=== PATIENT | female | born 2005 | race Caucasian/White ===

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

== ENCOUNTER 2024-03-25 00:45 | Emergency (ER) | payer BC ==
[~2024-03-25] VITALS: Ht 172.7 cm; Wt 90.5 kg
[~2024-03-25 00:45] MED LIST changes: +AZO-95TA3 PO; +BACT800T5 PO; +ONDA-282 PO; -ONDA4TAB6 PO
[2024-03-25 01:06] VITALS: BP 139/68
[2024-03-25 01:54] LABS: BASO % 0.6 % (0.0-1.0); EOS # 0.1 10^3/uL (0.0-0.5); EOS % 1.8 % (0.0-3.0); HEMOGLOBIN 12.4 g/dl (12.0-15.5); LYMPH # 3.8 10^3/uL (1.5-5.0); LYMPH % 52.9 % (24.0-44.0); MEAN CORPUSCULAR HEMOGLOBIN 28.3 pg (27.0-33.0); MEAN CORPUSCULAR HGB CONC 33.5 g/dl (32.0-36.5); MEAN CORPUSCULAR VOLUME 84.5 fl (80.0-96.0); MONO # 0.5 10^3/uL (0.0-0.8); MONO % 6.7 % (2.0-8.0); NEUTROPHILS # 2.7 10^3/uL (1.5-8.5); NEUTROPHILS % 37.9 % (36.0-66.0); PLATELET COUNT, AUTOMATED 317 10^3/uL (150-450); RED BLOOD COUNT 4.38 10^6/uL (4.00-5.40); WHITE BLOOD COUNT 7.1 10^3/uL (4.0-10.0)
[2024-03-25 02:21] LABS: ALBUMIN 3.8 G/DL (3.2-5.2); ALKALINE PHOSPHATASE 78 U/L (46-116); ALT/SGPT 33 U/L (7.0-40); AST/SGOT 17 U/L (<34); BILIRUBIN,DIRECT < 0.1 MG/DL (<0.4); BILIRUBIN,TOTAL 0.2 MG/DL (0.3-1.2); BLOOD UREA NITROGEN 9 MG/DL (9-23); CARBON DIOXIDE LEVEL 24 MMOL/L (20-31); CHLORIDE LEVEL 110 MMOL/L (98-107); CREATININE FOR GFR 0.69 MG/DL (0.55-1.30); GLUCOSE, FASTING 111 MG/DL (60-100); POTASSIUM SERUM 3.4 MMOL/L (3.5-5.1); SODIUM LEVEL 142 MMOL/L (136-145); TOTAL PROTEIN 6.3 G/DL (5.7-8.2)
[2024-03-25] MEDS: IPRATROPIUM 0.5MG/ALBUTEROL 2.5MG INH SOL UD 3ML (DUONEB) NEB ONE (04:11)
[2024-03-25] MEDS: methylPREDNISolone 125MG 2ML VIAL IV ONE (04:57)
[2024-03-25 05:08] LABS: FREE T4 0.91 NG/DL (0.83-1.43)
[2024-03-25 05:38] LABS: THYROID STIMULATING HORMONE 3.471 uIU/ML (0.48-4.17)
[2024-03-25] MEDS: ALBUTEROL 90 MCG/ACT 8GM HFA INHALER INH ONE (06:29)
[2024-03-25 06:34] VITALS: TEMP 98.2; O2SAT 98
== END 2024-03-25 06:32 | disposition home or self-care (01) ==
LOC: M ED 00:45
DX: J45.901 Unspecified asthma with (acute) exacerbation (principal); E03.9 Hypothyroidism, unspecified; Z79.899 Other long term (current) drug therapy; Z88.8 Allergy status to other drugs, medicaments and biological substances
CPT/HCPCS: 71045; 80048; 80076; 83605; 84439; 84443; 85025; 85379; 87040; 87486; 87581; 87633; 87798; 93005; 93041; 94640; 94760; 96374; 99285; J2919

== ENCOUNTER → 2024-08-04 | Outpatient (REF) | payer BC ==
[~2024-08-04] MED LIST changes: +MINO-13 PO; -MINO100C80 PO
== END ==
LOC: M LAB REF 12:34
PROVIDERS: ATTEND Nurse Practitioner Family
DX: R30.0 Dysuria (principal)

== ENCOUNTER → 2024-10-13 | Outpatient (REF) | payer BC, OTHER | LOC: M LAB REF 12:00 | PROVIDERS: ATTEND Nurse Practitioner Family | DX: R30.0 Dysuria (principal) ==

== ENCOUNTER → 2025-01-18 | Outpatient (REF) | payer BC, OTHER ==
[~2025-01-18] MED LIST changes: -LEVO100C PO; +LEVO100C2 PO
== END ==
LOC: M PLALAB 13:47
PROVIDERS: ATTEND Nurse Practitioner Family
DX: Z34.80 Encounter for supervision of other normal pregnancy, unspecified trimester (principal)

== ENCOUNTER → 2025-01-18 | Outpatient (CLI) | payer OTHER ==
[2025-01-18 15:25] LABS: HEMATOCRIT 42.5 % (36.0-47.0); HEMOGLOBIN 14.2 g/dl (12.0-15.5); MEAN CORPUSCULAR HEMOGLOBIN 28.2 pg (27.0-33.0); MEAN CORPUSCULAR HGB CONC 33.4 g/dl (32.0-36.5); MEAN CORPUSCULAR VOLUME 84.5 fl (80.0-96.0); PLATELET COUNT, AUTOMATED 374 10^3/uL (150-450); RED BLOOD COUNT 5.03 10^6/uL (4.00-5.40)
[2025-01-18 16:08] LABS: THYROID STIMULATING HORMONE 2.047 uIU/ML (0.48-4.17)
[2025-01-18 16:32] LABS: HIV 1&2 SCREEN NEGATIVE (NEGATIVE)
[2025-01-18 16:41] LABS: HEPATITIS C VIRUS ABY INDEX < 0.02 INDEX (<0.8)
[2025-01-18 17:11] LABS: Trichomonas vaginalis (AMP) NOT DETECTED (NEGATIVE)
[2025-01-18 17:35] LABS: GC DNA AMPLIFICATION NEGATIVE (NEGATIVE)
== END ==
LOC: M PLALAB 14:17
PROVIDERS: ATTEND Nurse Practitioner Family
DX: O99.280 Endocrine, nutritional and metabolic diseases complicating pregnancy, unspecified trimester (principal); E03.9 Hypothyroidism, unspecified; Z3A.00 Weeks of gestation of pregnancy not specified

== ENCOUNTER → 2025-02-01 | Outpatient (CLI) | payer OTHER | LOC: M PLALAB 11:24 | PROVIDERS: ATTEND Nurse Practitioner Family | DX: Z34.80 Encounter for supervision of other normal pregnancy, unspecified trimester (principal) ==

== ENCOUNTER → 2025-04-01 | Outpatient (REF) | payer OTHER ==
[~2025-04-01] MED LIST changes: +MULTTAB20 PO
== END ==
LOC: M LAB REF 17:34
PROVIDERS: ATTEND Physician Assistant
DX: R30.0 Dysuria (principal)

== ENCOUNTER → 2025-04-05 | Outpatient (CLI) | payer OTHER | LOC: M RAD 11:39 | PROVIDERS: ATTEND Nurse Practitioner Family | DX: Z34.02 Encounter for supervision of normal first pregnancy, second trimester (principal); Z3A.21 21 weeks gestation of pregnancy ==

== ENCOUNTER → 2025-05-13 | Outpatient (CLI) | payer OTHER ==
[~2025-05-13] MED LIST changes: -IBUP-1022 PO; +IBUP600T42 PO
[2025-05-13 15:44] LABS: FREE T4 0.92 NG/DL (0.83-1.43)
== END ==
LOC: M PLALAB 12:20
PROVIDERS: ATTEND Nurse Practitioner Family
DX: E03.9 Hypothyroidism, unspecified (principal)

== ENCOUNTER → 2025-05-13 | Outpatient (CLI) | payer OTHER ==
[2025-05-13 15:37] LABS: GLUCOSE CHALLENGE TEST 1 HOUR 75 MG/DL (LESS THAN 140); PLATELET COUNT, AUTOMATED 315 10^3/uL (150-450)
[2025-05-13 16:12] LABS: HIV 1&2 SCREEN NEGATIVE (NEGATIVE)
[2025-05-13 16:20] LABS: HEPATITIS C VIRUS ABY INDEX < 0.02 INDEX (<0.8)
[2025-05-13 16:39] LABS: Trichomonas vaginalis (AMP) NOT DETECTED (NEGATIVE)
[2025-05-13 17:02] LABS: GC DNA AMPLIFICATION NEGATIVE (NEGATIVE)
== END ==
LOC: M PLALAB 11:13
PROVIDERS: ATTEND Advanced Practice Midwife
DX: O99.282 Endocrine, nutritional and metabolic diseases complicating pregnancy, second trimester (principal)

== ENCOUNTER → 2025-07-01 | Outpatient (CLI) | payer OTHER ==
[2025-07-01 11:42] LABS: FREE T4 0.87 NG/DL (0.83-1.43)
== END ==
LOC: M PLALAB 08:08
PROVIDERS: ATTEND Advanced Practice Midwife
DX: O99.283 Endocrine, nutritional and metabolic diseases complicating pregnancy, third trimester (principal)

== ENCOUNTER → 2025-07-01 | Outpatient (CLI) | payer OTHER | LOC: M WHC 07:44 | PROVIDERS: ATTEND Advanced Practice Midwife | DX: O43.193 Other malformation of placenta, third trimester (principal); O99.283 Endocrine, nutritional and metabolic diseases complicating pregnancy, third trimester; Z3A.33 33 weeks gestation of pregnancy ==

== ENCOUNTER → 2025-07-20 | Outpatient (REF) | payer OTHER | LOC: M SFHCWAGY 07-19 10:07 | PROVIDERS: ATTEND Obstetrics & Gynecology | DX: Z3A.36 36 weeks gestation of pregnancy (principal); Z36.85 Encounter for antenatal screening for Streptococcus B ==

== ENCOUNTER 2025-07-29 04:48 | Outpatient (CLI) | payer OTHER ==
[~2025-07-29] VITALS: Ht 172.7 cm; Wt 112.4 kg
[2025-07-29 05:21] VITALS: BP 113/77
[2025-07-29] MEDS ORDERED: LEVO50TA5 PO (05:41)
[2025-07-29] MEDS ORDERED: HOME MED LIST COMPLETE! XX SCH (05:45)
[2025-07-29 07:17] LABS: PLATELET COUNT, AUTOMATED 300 10^3/uL (150-450)
[2025-07-29 07:33] LABS: ALT/SGPT 15 U/L (7.0-40); AST/SGOT 16 U/L (<34); CALCIUM LEVEL 8.7 MG/DL (8.5-10.1); CARBON DIOXIDE LEVEL 23 MMOL/L (20-31); CHLORIDE LEVEL 105 MMOL/L (98-107); CREATININE FOR GFR 0.53 MG/DL (0.55-1.30); GLOMERULAR FILTRATION RATE > 90.0 (>60); POTASSIUM SERUM 4.1 MMOL/L (3.5-5.1); SODIUM LEVEL 138 MMOL/L (136-145)
== END 2025-07-29 07:40 | disposition home or self-care (01) ==
LOC: M LDO 04:48
PROVIDERS: ATTEND Advanced Practice Midwife
DX: O26.893 Other specified pregnancy related conditions, third trimester (principal); O99.283 Endocrine, nutritional and metabolic diseases complicating pregnancy, third trimester; O99.513 Diseases of the respiratory system complicating pregnancy, third trimester; O99.343 Other mental disorders complicating pregnancy, third trimester; O43.193 Other malformation of placenta, third trimester; R10.11 Right upper quadrant pain; E03.9 Hypothyroidism, unspecified; F41.9 Anxiety disorder, unspecified; J45.990 Exercise induced bronchospasm; Z3A.37 37 weeks gestation of pregnancy
CPT/HCPCS: 36415; 59025; 80053; 85027; G0463

== ENCOUNTER 2025-08-07 10:35 | Inpatient (IN) | payer OTHER ==
[~2025-08-07] VITALS: Ht 172.7 cm; Wt 112.7 kg
[2025-08-07] VITALS (9 sets, daily range): BP systolic 102–133; BP diastolic 63–81; O2SAT 97–98
[~2025-08-07 10:35] MED LIST changes: +LEVO50TA5 PO
[2025-08-07] MEDS ORDERED: TRANEXAMIC ACID INJection 1,000 MG in NS 100 ML IV PRN (11:10)
[2025-08-07] MEDS ORDERED: OXYTOCIN DRIP 30 UNITS in IV 1 EA IV PRN (11:10)
[2025-08-07] MEDS ORDERED: METHYLERGONOVINE MALEATE 0.2 MG/ML 1 ML VIAL IM PRN (11:10)
[2025-08-07] MEDS ORDERED: LIDOCAINE 1% MDV 20 ML VIAL INFIL PRN (11:10)
[2025-08-07] MEDS ORDERED: TUMS500C PO (11:14)
[2025-08-07] MEDS ORDERED: ACET-907 PO (11:14)
[2025-08-07] MEDS ORDERED: HOME MED LIST COMPLETE! XX SCH (11:15)
[2025-08-07 11:41] LABS: PLATELET COUNT, AUTOMATED 296 10^3/uL (150-450)
[2025-08-07] MEDS: miSOPROStol 50 MCG 1/2 TABLET PO SCH (11:56)
[2025-08-07 12:42] LABS: HEPATITIS C VIRUS ABY INDEX < 0.02 INDEX (<0.8)
[2025-08-07 13:06] LABS: HIV 1&2 SCREEN NEGATIVE (NEGATIVE)
[2025-08-07] MEDS ORDERED: ALBU8.5H INH (13:28)
[2025-08-08] VITALS (45 sets, daily range): BP systolic 97–145; BP diastolic 51–80; O2SAT 93–99
[2025-08-08] MEDS: BUTORPHANOL 2 MG/ML 1 ML VIAL IV ONE (00:02)
[2025-08-08] MEDS: LR 1,000 ML IV SCH (05:27)
[2025-08-08] MEDS: OXYTOCIN DRIP 30 UNITS in IV 1 EA IV SCH (05:27)
[2025-08-08] MEDS: LEVOTHYROXINE 25 MCG TABLET (0.025MG) PO SCH (05:53)
[2025-08-08] MEDS ORDERED: LR 500 ML IV PRN (14:45)
[2025-08-08] MEDS ORDERED: NALOXONE INJ 0.4 MG/1 ML VIAL IV PRN (14:45)
[2025-08-08] MEDS ORDERED: diphenhydrAMINE 50 MG/ML VIAL IV PRN (14:45)
[2025-08-08] MEDS ORDERED: EPIDURAL/PCA KEYS XX PRN (14:45)
[2025-08-08] MEDS: FENTANYL/ROPIVACAINE/NACL BAG 100 ML EPIDURAL SCH (15:43)
[2025-08-08] MEDS: ONDANSETRON 4MG/2ML VIAL IV PRN (18:58)
[2025-08-09] MEDS: OXYTOCIN DRIP 30 UNITS in IV 1 EA IV SCH (01:30)
[2025-08-09] MEDS ORDERED: CALCIUM CARBONATE 500 MG CHEW U/D PO PRN (01:40)
[2025-08-09] MEDS ORDERED: ONDANSETRON 4MG/2ML VIAL IV PRN (01:40)
[2025-08-09] MEDS ORDERED: MOM 30 ML SUSPENSION UDC PO PRN (01:40)
[2025-08-09] MEDS ORDERED: RHOGAM 300MCG (1500IU) INJ IM SCH (01:40)
[2025-08-09] MEDS ORDERED: ANUSOL HC CREAM 30 GM TOP PRN (01:40)
[2025-08-09] MEDS ORDERED: METHYLERGONOVINE MALEATE 0.2 MG TAB PO PRN (01:40)
[2025-08-09 03:58] VITALS: BP 118/65; O2SAT 96
[2025-08-09] MEDS: DIBUCAINE 1% OINTMENT 30 GM TOP PRN (05:18)
[2025-08-09 06:47] VITALS: BP 105/53; O2SAT 100
[2025-08-09] MEDS: IBUPROFEN 600 MG TAB PO PRN (08:04)
[2025-08-09] MEDS: PRENATAL VITAMINS CHEWABLE TABLET PO SCH (08:05)
[2025-08-09] MEDS: ACETAMINOPHEN 325 MG TAB PO PRN (13:23)
[2025-08-09 18:00] VITALS: BP 131/70; O2SAT 98
[2025-08-10 06:00] VITALS: BP 127/58; O2SAT 97
[2025-08-10] MEDS: ACETAMINOPHEN 500 MG TAB PO PRN (06:19)
[2025-08-10] MEDS: DOCUSATE SODIUM 100 MG CAPSULE PO PRN (17:54)
[2025-08-10 18:00] VITALS: BP 134/80; O2SAT 98
[2025-08-10] MEDS: IBUPROFEN 800 MG TAB PO PRN (22:00)
[2025-08-11 06:00] VITALS: BP 133/73; O2SAT 98
[2025-08-11] MEDS: FLUZONE VACCINE TRI PF(25-26) 0.5ML SYRINGE IM.IMMUN ONE (08:51)
[2025-08-11] MEDS: MEASLES,MUMPS,RUBELLA VACCINE INJ (MMR-II) SC.IMMUN ONE (09:00)
== END 2025-08-11 14:28 | disposition home or self-care (01) | DRG 560 ==
LOC: M LDI 10:35 → M OBS 08-09 03:47
PROVIDERS: ADMIT Obstetrics & Gynecology; ATTEND Obstetrics & Gynecology
PROC: 3E033VJ Introduction of Other Hormone into Peripheral Vein, Percutaneous Approach (ICD-10-PCS; 2025-08-07)
PROC: 10E0XZZ Delivery of Products of Conception, External Approach (ICD-10-PCS; principal; 2025-08-09)
PROC: 0HQ9XZZ Repair Perineum Skin, External Approach (ICD-10-PCS; 2025-08-09)
DX: O99.284 Endocrine, nutritional and metabolic diseases complicating childbirth (principal); E03.9 Hypothyroidism, unspecified; Z3A.39 39 weeks gestation of pregnancy; Z79.899 Other long term (current) drug therapy; Z88.8 Allergy status to other drugs, medicaments and biological substances; Z37.0 Single live birth; O70.0 First degree perineal laceration during delivery